=== PATIENT | female | born 1995 | race Caucasian/White ===

== ENCOUNTER 2022-05-17 14:29 | Inpatient (IN) ==
[2022-05-17 14:47] VITALS: BMI 23.3
[2022-05-17 15:19] LABS: BILIRUBIN,URINE NEGATIVE (NEGATIVE); BLOOD/HEMOGLOBIN,URINE NEGATIVE (NEGATIVE); GLUCOSE, URINE NEGATIVE (NEGATIVE); KETONES,URINE NEGATIVE (NEGATIVE); LEUKOCYTE ESTERASE ,URINE NEGATIVE (NEGATIVE); NITRITES,URINE NEGATIVE (NEGATIVE); PROTEIN,URINE NEGATIVE (NEGATIVE); UROBILINOGEN,URINE NORMAL (NORMAL)
[2022-05-17 15:25] LABS: APPEARANCE,URINE CLEAR (CLEAR); COLOR,URINE PALE YELLOW (YELLOW)
[2022-05-17 15:29] LABS: AMNISURE ROM TEST NO MEMBRANES RUPTURE (NO RUPTURE)
[2022-05-17] MEDS ORDERED: ANCEF VIAL 1 GRAM IVP ONE (15:35)
[2022-05-17] MEDS ORDERED: ZOFRAN INJ 4 MG VIAL ONE (15:42)
[2022-05-17] MEDS ORDERED: NS 100 ML IV 100 ML ONE (15:43)
[2022-05-17] MEDS ORDERED: REGLAN INJ 10 MG VIAL ONE (15:43)
[2022-05-17] MEDS ORDERED: ANCEF VIAL 1 GRAM ONE (15:43)
[2022-05-17] MEDS ORDERED: LR 1,000 ML IV 1,000 ML IV ONE (15:45)
[2022-05-17 15:57] LABS: BASOPHILS # (AUTO) 0.1 X10^3/uL (0.0-0.1); BASOPHILS % (AUTO) 0.8 % (0.2-1.0); EOSINOPHILS # (AUTO) 0.3 x10^3/uL (0.0-0.2); EOSINOPHILS % (AUTO) 3.9 % (0.9-2.9); HEMATOCRIT 32.7 % (36.0-47.0); LYMPHOCYTES # (AUTO) 2.3 X10^3/uL (1.3-2.9); LYMPHOCYTES % (AUTO) 30.5 % (21.0-51.0); MEAN CORPUSCULAR HEMOGLOBIN 27.1 pg (27.0-34.0); MEAN CORPUSCULAR HGB CONC 33.7 g/dL (33.0-35.0); MEAN CORPUSCULAR VOLUME 80.5 fL (80.0-100.0); MEAN PLATELET VOLUME 9.3 fL (7.4-11.0); MONOCYTES # (AUTO) 0.4 x10^3/uL (0.3-0.8); MONOCYTES % (AUTO) 4.8 % (0.0-13.0); NEUTROPHILS # (AUTO) 4.5 x10^3/uL (2.2-4.8); RED BLOOD COUNT 4.07 X10^6/uL (3.5-5.4); RED CELL DISTRIBUTION WIDTH 13.9 % (11.6-16.5); WHITE BLOOD COUNT 7.5 X10^3/uL (3.6-10.0)
[2022-05-17] MEDS ORDERED: PEPCID 20 MG VIAL ONE (15:57)
[2022-05-17] MEDS ORDERED: DILAUDID INJ ONE (15:57)
[2022-05-17] MEDS ORDERED: MARCAINE SPINAL ONE (15:58)
[2022-05-17] MEDS ORDERED: TORADOL 30 MG VIAL ONE (15:58)
[2022-05-17] MEDS ORDERED: XYLOCAINE 2 % (PLAIN) ONE (15:59)
[2022-05-17 16:02] LABS: BLOOD UREA NITROGEN 6 mg/dL (7-18); CALCIUM 8.1 mg/dL (8.5-10.1); CARBON DIOXIDE 21.5 mmol/L (21-32); CHLORIDE 103 mmol/L (98-107); CREATININE 0.72 mg/dL (0.55-1.02); SODIUM 137 mmol/L (136-145); eGFR NON BLACK RACES > 60 (>60)
[2022-05-17] MEDS ORDERED: PITOCIN ONE ×2 (16:49→17:13)
[2022-05-17] MEDS ORDERED: VERSED ONE (16:49)
[2022-05-17] MEDS ORDERED: LACRI-LUBE S.O.P. ONE (16:56)
[2022-05-17] MEDS ORDERED: OFIRMEV IV 1000 MG VIAL 1,000 MG/100 ML VIAL IV ONE (17:12)
[2022-05-17] MEDS ORDERED: EPHEDRINE SULFATE INJ ONE (17:13)
[2022-05-17] MEDS ORDERED: ROBINUL ONE (17:30)
[2022-05-17] MEDS ORDERED: DECADRON INJ ONE (17:43)
[2022-05-17] MEDS ORDERED: PHENERGAN INJ 25 MG IM PRN (18:01)
[2022-05-17] MEDS ORDERED: ZOFRAN INJ 4 MG VIAL IVP PRN (18:01)
[2022-05-17] MEDS ORDERED: DILAUDID INJ IVP PRN (18:01)
[2022-05-17] MEDS ORDERED: BENADRYL INJ 50 MG VIAL IVP PRN ×2 (18:01→18:15)
[2022-05-17] MEDS ORDERED: REGLAN INJ 10 MG VIAL IVP PRN (18:15)
[2022-05-17] MEDS ORDERED: ADACEL or BOOSTRIX TDaP VACCINE IM ONE ×2 (18:15→23:22)
[2022-05-17] MEDS ORDERED: PERCOCET TAB 5/325 MG PO PRN (18:15)
[2022-05-17] MEDS ORDERED: D5 1/2 NS 1,000 ML 1,000 ML with PITOCIN 20 UNITS IV SCH ×2 (18:15)
[2022-05-17] MEDS ORDERED: TORADOL 30 MG VIAL IVP PRN (18:15)
[2022-05-17] MEDS ORDERED: NARCAN INJ IVP PRN (18:15)
[2022-05-17] MEDS ORDERED: D5 1/2 NS 1,000 ML 1,000 ML IV ONE (19:11)
[2022-05-18 04:55] LABS: HEMATOCRIT 29.8 % (36.0-47.0); HEMOGLOBIN 10.2 g/dL (12.0-16.0)
[2022-05-18] MEDS: PRENATAL PLUS PO SCH (09:15)
[2022-05-18] MEDS: COLACE CAP 100 MG PO SCH ×2 (09:15→21:08)
[2022-05-18] MEDS: CELEXA PO SCH (09:16)
[2022-05-18] MEDS: PERCOCET TAB 5/325 MG PO PRN ×3 (09:16→19:13)
[2022-05-18] MEDS: MOTRIN TAB 800 MG PO PRN ×2 (13:33→17:55)
[2022-05-18] MEDS ORDERED: BENADRYL CAP/TAB 25 MG PO PRN (16:00)
[2022-05-18] MEDS: MYLICON TAB 80 MG CHEW PO PRN (19:14)
[2022-05-18] MEDS: BACTROBAN TOPICAL OINT TOP SCH (21:14)
[2022-05-19] MEDS: PERCOCET TAB 5/325 MG PO PRN ×2 (00:19→05:57)
[2022-05-19] MEDS: BACTROBAN TOPICAL OINT TOP SCH (06:04)
[2022-05-19 08:29] VITALS: BP 111/66
[2022-05-19] MEDS: COLACE CAP 100 MG PO SCH (08:33)
[2022-05-19] MEDS: CELEXA PO SCH (08:33)
[2022-05-19] MEDS: MOTRIN TAB 800 MG PO PRN (08:33)
[2022-05-19] MEDS: MYLICON TAB 80 MG CHEW PO PRN (08:33)
[2022-05-19] MEDS: PRENATAL PLUS PO SCH (08:34)
== END 2022-05-19 10:50 | disposition home or self-care (01) | DRG 787 ==
LOC: ER 14:29 → LD 15:35 → MED/SURG 18:47
PROVIDERS: ADMIT Specialist; ATTEND Specialist
DX: N85.8 Other specified noninflammatory disorders of uterus; Z3A.38 38 weeks gestation of pregnancy; O98.82 Other maternal infectious and parasitic diseases complicating childbirth; Z37.0 Single live birth; Z87.42 Personal history of other diseases of the female genital tract; O34.211 Maternal care for low transverse scar from previous cesarean delivery; O99.343 Other mental disorders complicating pregnancy, third trimester; B95.1 Streptococcus, group B, as the cause of diseases classified elsewhere